=== PATIENT | male | born 1955 | race Caucasian/White ===

== ENCOUNTER → 2019-03-01 | Outpatient (CLI) | payer MEDICARE ==
--- NOTE | 2019-03-02 11:50 | P.STRESS ---
- Stress Test Note Stress Test Results/Findings: Exam Performed: stress echo exercise Exam Date: 03/01/19 Reason for Exam: HTN Height: 6 ft 2 in Weight: 105.233 kg Protocol: BENOIT Stage: 3 Duration of Exercise: 8:15 Resting Heart Rate: 77 Resting Blood Pressure: 114/68 Maximum Achieved Heart Rate: 140 Maximum Achieved Blood Pressure: 179/60 85% PMHR: 131 100% PMHR: 154 METS: 9.9 Technologist Comment: Stress Test Results/Findings: This is a 64-year-old gentleman with history of hypertension and hypercholesterolemia being evaluated for cardiac status. Stress data: Baseline EKG showed sinus rhythm with normal ID interval and QRS duration. Blood pressure at rest is 114/68, pulse rate of 77. Patient walked on the Benoit protocol for 8 minutes and 15 seconds achieving a maximum heart rate of 140 with a blood pressure 179/60. EKGs taken during and after exercise did not reveal any significant changes of ischemia. Patient did not experience any chest pain. Echo data: Baseline echo images show normal wall motion and thickening. Exercise echo images showed augmentation of wall motion and thickening in all the segments. Final impression: #1. Negative stress test #2. Negative stress echo.
--- NOTE | 2019-03-05 13:52 | ECHOS ---
Stress Test Results/Findings: Exam Performed: stress echo exercise Exam Date: 03/01/19 Reason for Exam: HTN Height: 6 ft 2 in Weight: 105.233 kg Protocol: BENOIT Stage: 3 Duration of Exercise: 8:15 Resting Heart Rate: 77 Resting Blood Pressure: 114/68 Maximum Achieved Heart Rate: 140 Maximum Achieved Blood Pressure: 179/60 85% PMHR: 131 100% PMHR: 154 METS: 9.9 Technologist Comment: Stress Test Results/Findings: This is a 64-year-old gentleman with history of hypertension and hypercholesterolemia being evaluated for cardiac status. Stress data: Baseline EKG showed sinus rhythm with normal HI interval and QRS duration. Blood pressure at rest is 114/68, pulse rate of 77. Patient walked on the Benoit protocol for 8 minutes and 15 seconds achieving a maximum heart rate of 140 with a blood pressure 179/60. EKGs taken during and after exercise did not reveal any significant changes of ischemia. Patient did not experience any chest pain. Echo data: Baseline echo images show normal wall motion and thickening. Exercise echo images showed augmentation of wall motion and thickening in all the segments. Final impression: #1. Negative stress test #2. Negative stress echo. NICOLA
== END | disposition home or self-care (01) ==
LOC: RADNMMAIN 09:48
PROVIDERS: ATTEND Family Medicine
DX: I10 Essential (primary) hypertension (principal)
CPT/HCPCS: 93351

== ENCOUNTER 2020-03-18 08:09 | Day surgery (SDC) | payer MEDICARE ==
[2020-03-17 09:06] VITALS: BMI 29.5
[~2020-03-18 08:09] MED LIST: LACTATED RINGERS 1,000 ML IV SCH
[2020-03-18 08:42] VITALS: RESP 16; TEMP 98.3
[2020-03-18] MEDS ORDERED: LIDOCAINE 1% (10MG/ML) FOR IV START INTRADERMA ONE (08:52)
[2020-03-18] MEDS ORDERED: PROPOFOL 10 MG/ML 20 ML VIAL IV ONE (09:00)
[2020-03-18] MEDS ORDERED: LIDOCAINE 1% INJ 10MG/ML (20 ML MDV) ONE (09:00)
--- NOTE | 2020-03-18 09:03 | P.GSHP ---
History of Present Illness H&P Date: 03/18/20 Chief Complaint: Colon cancer screening Patient here today for colonoscopy. Last colonoscopy 15 years ago. He believes that was normal. No bowel complaints. No family history of colon cancer. Past Medical History Past Medical History: Hyperlipidemia, Hypertension History of Any Multi-Drug Resistant Organisms: None Reported Past Surgical History: No Surgical Hx Reported Additional Past Surgical History / Comment(s): COLONOSCOPY Past Anesthesia/Blood Transfusion Reactions: No Reported Reaction Smoking Status: Never smoker - Past Family History Mother Family Medical History: No Reported History Medications and Allergies Home Medications Medication Instructions Recorded Confirmed Type amLODIPine BESYLATE/BENAZEPRIL 1 each PO HS 03/17/20 03/18/20 History [amLODIPine BESYLATE/BENAZEPRIL 5-10 MG] Allergies Allergy/AdvReac Type Severity Reaction Status Date / Time No Known Allergies Allergy Verified 03/18/20 08:42 Surgical - Exam Vital Signs Temp Pulse Resp BP Pulse Ox 98.3 F 93 16 159/91 97 03/18/20 08:37 03/18/20 08:37 03/18/20 08:37 03/18/20 08:37 03/18/20 08:37 Physical exam: General: Well-developed, well-nourished HEENT: Normocephalic, sclerae nonicteric Abdomen: Nontender, nondistended Extremities: No edema Neuro: Alert and oriented Assessment and Plan (1) Colon cancer screening Narrative/Plan: Will proceed with colonoscopy at this time Current Visit: Yes Status: Acute Code(s): Z12.11 - ENCOUNTER FOR SCREENING FOR MALIGNANT NEOPLASM OF COLON SNOMED Code(s): 421913731
--- NOTE | 2020-03-18 09:38 | P.OP ---
Date of Procedure: 03/18/20 Procedure(s) Performed: PREOPERATIVE DIAGNOSIS: Colon cancer screening POSTOPERATIVE DIAGNOSIS: Multiple large polyps PROCEDURE: Colonoscopy with snare polypectomy, clip placement, spot injection ANESTHESIA: MAC SURGEON: Isaac Rice M.D. SPECIMENS: Polyps ENDOSCOPIC PROCEDURE: The patient was placed on the endoscopy table in the left decubitus position. The Olympus colonoscope was inserted into the anus and passed under direct visualization to the base of the cecum. The appendiceal orifice was visualized. From that point the scope was slowly withdrawn inspecting all surfaces carefully. There were no neoplastic inflammatory or polypoid lesions throughout the cecum. In the ascending colon 2 small polyps were removed using the snare with cautery technique. The remainder of the ascending and transverse colon appear normal. In the descending colon at 45 cm there were 3 polyps adjacent to one another almost on the same fold. These were by several centimeters however. 2 were smaller than 1 cm both removed using the snare with cautery technique. The larger one measured 2 cm and was on a long thin stalk. This was removed using the snare with cautery technique. Spot injection took place at and just distal to the large polypectomy site. The colon was normal between there and 22 cm where another long pedunculated polyp was seen. This measured 2.5 cm in size. This was again removed using the snare with cautery technique as one piece. A clip was deployed at the stalk after we saw a small amount of blood there. Another long pedunculated polyp measuring 2 cm was present at 18 cm. This was repaired again removed using the snare with cautery technique. Prophylactically I did place a clip on the stalk as well. The remainder of the sigmoid and rectum appeared normal. The patient had moderate left-sided diverticulosis. Digital rectal examination was normal. The patient was taken to the recovery room in stable condition per anesthesia guidelines. RECOMMENDATIONS: Await biopsy results. Will require short-term follow-up colonoscopy.
[2020-03-18] MEDS ORDERED: LACTATED RINGERS 1,000 ML IV ONE (09:39)
[2020-03-18 09:52] VITALS: BP 135/80; PULSE 72
== END 2020-03-18 10:30 | disposition home or self-care (01) ==
LOC: ORWHC2ENDO 08:09
PROVIDERS: ATTEND Surgery
DX: Z12.11 Encounter for screening for malignant neoplasm of colon (principal); K57.30 Diverticulosis of large intestine without perforation or abscess without bleeding; E78.5 Hyperlipidemia, unspecified; I10 Essential (primary) hypertension; Z79.899 Other long term (current) drug therapy
CPT/HCPCS: 88305; 45385; 45381; J2001; J2704; 44404; 45382

== ENCOUNTER → 2020-03-26 | Outpatient (CLI) | payer MEDICARE ==
--- NOTE | 2020-03-26 16:14 | XR ---
EXAMINATION TYPE: XR ankle limited LT DATE OF EXAM: 03/26/2020 CLINICAL HISTORY: Trauma, swelling, bruising. Pain. Tripped one week ago. TECHNIQUE: Frontal and lateral images of the left ankle are obtained. COMPARISON: None. FINDINGS: There is no acute fracture/dislocation evident in the left ankle. The ankle mortise appea rs maintained within limits of frontal view. There is diffuse ankle soft tissue swelling. IMPRESSION: Diffuse ankle soft tissue swelling. No acute osseous abnormality seen on 2 view radiograp h.
--- NOTE | 2020-03-26 16:17 | XR ---
EXAMINATION TYPE: XR knee limited LT DATE OF EXAM: 03/26/2020 CLINICAL HISTORY: Trauma, swelling, bruising. Tripped one week ago. Pain. TECHNIQUE: Frontal and lateral views of the left knee are obtained. COMPARISON: None. FINDINGS: There is no acute fracture/dislocation evident in left knee. There is medial compartment j oint space narrowing. There is bicompartmental degenerative spurring of the medial and lateral compar tments, worst medially. No suprapatellar joint effusion. The overlying soft tissue appears unremarkab le. IMPRESSION: 1. There is no acute fracture or dislocation in the left knee. 2. Osteoarthritis worst at the medial compartment.
== END | disposition home or self-care (01) ==
LOC: RADXRMAIN 12:36
PROVIDERS: ATTEND Family Medicine
DX: M17.12 Unilateral primary osteoarthritis, left knee (principal); M25.472 Effusion, left ankle

== ENCOUNTER 2021-03-17 10:01 | Day surgery (SDC) | payer MEDICARE ==
[2021-03-13 11:21] VITALS: BMI 29.5
[~2021-03-17 10:01] MED LIST changes: +LIDOCAINE 1% (10MG/ML) FOR IV START INTRADERMA PRN
[2021-03-17 10:20] VITALS: TEMP 97.6
[2021-03-17] MEDS ORDERED: PROPOFOL 10 MG/ML 20 ML VIAL IV ONE (11:06)
--- NOTE | 2021-03-17 11:10 | P.GSHP ---
History of Present Illness H&P Date: 03/17/21 Chief Complaint: Colon cancer screening, history of polyps 66-year-old male was last seen 1 year ago. The patient had multiple polyps tube which was quite large. These represented adenomas and tubulovillous adenomas. The polyp at 18 cm had focal high-grade dysplasia noncontacting the inked margin. Patient doing well since his last colonoscopy. No rectal bleeding or melena. Past Medical History Past Medical History: Hyperlipidemia, Hypertension Additional Past Medical History / Comment(s): HX COLON POLYPS History of Any Multi-Drug Resistant Organisms: None Reported Past Surgical History: No Surgical Hx Reported Additional Past Surgical History / Comment(s): COLONOSCOPY Past Anesthesia/Blood Transfusion Reactions: No Reported Reaction Past Psychological History: No Psychological Hx Reported Smoking Status: Never smoker Past Alcohol Use History: None Reported Past Drug Use History: None Reported - Past Family History Mother Family Medical History: No Reported History Medications and Allergies Home Medications Medication Instructions Recorded Confirmed Type amLODIPine/ATORVASTATIN 1 tab PO HS 03/13/21 03/17/21 History [amLODIPine/ATORVASTATIN 5-10 MG] Allergies Allergy/AdvReac Type Severity Reaction Status Date / Time No Known Allergies Allergy Verified 03/17/21 10:22 Surgical - Exam Vital Signs Temp Pulse Resp BP Pulse Ox 97.6 F 71 18 147/87 97 03/17/21 10:18 03/17/21 10:18 03/17/21 10:18 03/17/21 10:18 03/17/21 10:18 Physical exam: General: Well-developed, well-nourished HEENT: Normocephalic, sclerae nonicteric Abdomen: Nontender, nondistended Extremities: No edema Neuro: Alert and oriented Assessment and Plan (1) Adenomatous colon polyp Narrative/Plan: Proceed with colonoscopy at this time Current Visit: Yes Status: Acute Code(s): D12.6 - BENIGN NEOPLASM OF COLON, UNSPECIFIED SNOMED Code(s): 283832646
--- NOTE | 2021-03-17 11:35 | P.PCN ---
Date of Procedure: 03/17/21 Procedure(s) Performed: PREOPERATIVE DIAGNOSIS: Personal history of colon polyps, screening POSTOPERATIVE DIAGNOSIS: Colon polyps, diverticulosis PROCEDURE: Colonoscopy with snare polypectomy ANESTHESIA: MAC SURGEON: Isaac Rice M.D. SPECIMENS: Polyps ENDOSCOPIC PROCEDURE: The patient was placed on the endoscopy table in the left decubitus position. The Olympus colonoscope was inserted into the anus and passed under direct visualization to the base of the cecum. The appendiceal orifice was visualized. From that point the scope was slowly withdrawn inspecting all surfaces carefully. There were no neoplastic inflammatory or polypoid lesions throughout the cecum, ascending, and transverse colon. In the descending colon near our previous tattoo mal there was a very small polyp removed using the snare with cautery technique. In the sigmoid colon at 30 cm there was a pedunculated polyp measuring approximately 1 cm in size removed using the snare with cautery technique. In the distal sigmoid colon there was a very small polyp seen removed using the snare with cautery technique as well. There are scattered diverticulosis. Rectum appeared normal. Digital rectal examination was normal. The patient was taken to the recovery room in stable condition per anesthesia guidelines. RECOMMENDATIONS: Await biopsy results. Recommend follow-up colonoscopy in 2-3 years.
[2021-03-17 11:37] VITALS: RESP 16
[2021-03-17 12:05] VITALS: BP 133/86; PULSE 78
== END 2021-03-17 12:38 | disposition home or self-care (01) ==
LOC: ORWHC2ENDO 10:01
PROVIDERS: ATTEND Surgery
DX: Z12.11 Encounter for screening for malignant neoplasm of colon (principal); D12.5 Benign neoplasm of sigmoid colon; K63.5 Polyp of colon; K57.30 Diverticulosis of large intestine without perforation or abscess without bleeding; Z86.010 Personal history of colon polyps; E78.5 Hyperlipidemia, unspecified; I10 Essential (primary) hypertension; Z98.890 Other specified postprocedural states; Z79.899 Other long term (current) drug therapy
CPT/HCPCS: 45385; J2704; 88305

== ENCOUNTER → 2024-03-20 | Outpatient (CLI) | payer MEDICARE | END | disposition home or self-care (01) | LOC: LABPRL 09:35 | PROVIDERS: ATTEND Family Medicine | CPT/HCPCS: 80053; 80061; 83036; 85025 ==

== ENCOUNTER 2024-07-31 09:34 | Day surgery (SDC) | payer MEDICARE ==
[2024-07-31] MEDS: IV FLUID CONTINUATION 1,000 ML IV ONE ×2 (10:08)
[2024-07-31 10:09] VITALS: TEMP 97.4
[2024-07-31] MEDS ORDERED: LIDOCAINE 1% (10MG/ML) FOR IV START INTRADERMA PRN (10:11)
[2024-07-31] MEDS: LACTATED RINGERS 1,000 ML IV SCH (10:17)
[2024-07-31] MEDS ORDERED: PROPOFOL 10 MG/ML 20 ML VIAL IV ONE (10:42)
[2024-07-31] MEDS ORDERED: LIDOCAINE 1% INJ 10MG/ML (20 ML MDV) ONE (10:42)
--- NOTE | 2024-07-31 10:44 | P.GSHP ---
History of Present Illness H&P Date: 07/31/24 Chief Complaint: Screening with history of polyps 69-year-old male here for colonoscopy. Last colonoscopy 3 years ago. Patient with history of numerous colon polyps. Had an area tattooed in the past in the descending colon. No bowel complaints. No family history of colon cancer. Past Medical History Past Medical History: Hyperlipidemia, Hypertension Additional Past Medical History / Comment(s): hx. colon polyps History of Any Multi-Drug Resistant Organisms: None Reported Past Surgical History: No Surgical Hx Reported Additional Past Surgical History / Comment(s): COLONOSCOPIES Past Anesthesia/Blood Transfusion Reactions: No Reported Reaction Smoking Status: Never smoker - Past Family History Mother Family Medical History: No Reported History Medications and Allergies Home Medications Medication Instructions Recorded Confirmed Type amLODIPine/ATORVASTATIN 1 tab PO HS 03/13/21 07/31/24 History [amLODIPine/ATORVASTATIN 5-10 MG] Allergies Allergy/AdvReac Type Severity Reaction Status Date / Time No Known Allergies Allergy Verified 07/31/24 10:11 Surgical - Exam Vital Signs Temp Pulse Resp BP Pulse Ox 97.4 F L 78 18 160/83 95 07/31/24 10:08 07/31/24 10:08 07/31/24 10:08 07/31/24 10:08 07/31/24 10:08 Physical exam: General: Well-developed, well-nourished HEENT: Normocephalic, sclerae nonicteric Abdomen: Nontender, nondistended Extremities: No edema Neuro: Alert and oriented Assessment and Plan (1) Adenomatous colon polyp Narrative/Plan: Will proceed with colonoscopy at this time. Current Visit: No Status: Acute Code(s): D12.6 - BENIGN NEOPLASM OF COLON, UNSPECIFIED SNOMED Code(s): 426780728
--- NOTE | 2024-07-31 11:07 | P.PCN ---
Date of Procedure: 07/31/24 Procedure(s) Performed: PREOPERATIVE DIAGNOSIS: History of polyps, screening POSTOPERATIVE DIAGNOSIS: Cecal polyps, transverse colon polyp, rectal polyp, diverticulosis PROCEDURE: Colonoscopy with snare polypectomy and clip placement ANESTHESIA: MAC SURGEON: Isaac Rice M.D. SPECIMENS: Cecal polyp, transverse colon polyp, rectal polyp ENDOSCOPIC PROCEDURE: The patient was placed on the endoscopy table in the left decubitus position. The Olympus colonoscope was inserted into the anus and passed under direct visualization to the base of the cecum. The appendiceal orifice was visualized. From that point the scope was slowly withdrawn inspecting all surfaces carefully. This patient's prep was slightly suboptimal with some retained liquid and solid stool throughout. This seems to be largely from the patient's larger diverticular orifices. At the base of the cecum initially we saw a 6 to 7 mm polyp that was removed using the snare with cautery technique. There was a small amount of oozing from the polypectomy site and a clip was deployed. As we were deploying the clip I was able to visualize a additional polypoid lesion that measured at least 2 cm in size along the medial wall of the cecum adjacent to the valve itself. A portion of this was excised with a snare technique. These were sent together as cecal polyp. Ascending colon was free of abnormalities. Transverse colon there was a small polyp removed using the snare with cautery technique. Descending and sigmoid colon a ppeared normal with exception of diverticulosis. In the rectum a small polyp was also seen and removed using the snare without cautery technique. The remainder of the rectum was normal. Again diverticulosis was seen. Digital rectal examination was normal. The patient was taken to the recovery room in stable condition per anesthesia guidelines. RECOMMENDATIONS: Await biopsy results. Patient will require further treatment of the cecal polyp that was not fully resected. Will likely refer to advanced endoscopy at [facility] for attempted endoscopic removal. Will contact patient with pathology findings.
[2024-07-31 11:15] VITALS: RESP 16
[2024-07-31 11:32] VITALS: BP 133/76; PULSE 72
== END 2024-07-31 11:54 | disposition home or self-care (01) ==
LOC: ORWHC2ENDO 09:34
PROVIDERS: ATTEND Surgery
DX: Z12.11 Encounter for screening for malignant neoplasm of colon (principal); D12.0 Benign neoplasm of cecum; D12.3 Benign neoplasm of transverse colon; K62.1 Rectal polyp; K57.30 Diverticulosis of large intestine without perforation or abscess without bleeding; I10 Essential (primary) hypertension; E78.5 Hyperlipidemia, unspecified; F17.200 Nicotine dependence, unspecified, uncomplicated; Z79.899 Other long term (current) drug therapy
CPT/HCPCS: 88305; 45385; J2003; J2704